=== PATIENT | male | born 1990 | race Caucasian/White ===

== ENCOUNTER 2019-12-05 15:43 | Emergency (ER) | payer BC, OTHER ==
[~2019-12-05] VITALS: Ht 195.6 cm; Wt 81.7 kg
[2019-12-05] MEDS ORDERED: ERYTHROMYCIN E3.5 G3 OPHTHALMIC (17:28)
[2019-12-05] MEDS ORDERED: NORCO 5-325 TA1 EAC2 PO (17:28)
[2019-12-05 18:28] VITALS: BP 139/79
== END 2019-12-05 18:29 | disposition home or self-care (01) ==
LOC: ER 15:43
DX: H10.212 Acute toxic conjunctivitis, left eye (principal); T49.0X5A Adverse effect of local antifungal, anti-infective and anti-inflammatory drugs, initial encounter; Y92.89 Other specified places as the place of occurrence of the external cause